=== PATIENT | female | born 1985 | race Caucasian/White ===

== ENCOUNTER 2021-03-17 14:30 | Outpatient (CLI) | payer BC, SELFPAY ==
--- NOTE | ~2021-03-17 | XR_ITS ---
XR abdomen/kub 1V DATE: 03/17/2021 14:52 INDICATION: Hematuria. Bilateral kidney stones. TECHNIQUE: AP projection, 2 views COMPARISON: 10/09/2019 KUB FINDINGS: There are calcific is overlying both renal silhouettes including one larger calcification o n the right measures 6.5 mm. The other calcifications are much smaller. No apparent calcification overlying the ureters. The psoas shadows are intact. No visceromegaly. No evidence of bowel obstruction. IMPRESSION: Probable bilateral nephrolithiasis. Noncontrast CT abdomen pelvis examination would be more sensitive and accurate for detection of numbe r and location of urinary tract stones. Reviewed, dictated and finalized at [facility]. Reviewed, dictated and finalized at [facility]. IMPRESSION: Probable bilateral nephrolithiasis. Noncontrast CT abdomen pelvis examination would be more sensitive and accurate for detection of number and location of urinary tract stones.
== END 2021-03-17 14:31 | disposition home or self-care (01) ==
LOC: ANHIMG 14:36
PROVIDERS: PCP Family Medicine; Visit Provider Nurse Practitioner Adult Health
DX: N20.0 Calculus of kidney (principal)
CPT/HCPCS: 74018

== ENCOUNTER 2021-05-23 16:48 | Outpatient (CLI) | payer BC, SELFPAY ==
[2021-05-23 17:23] LABS: INR 1.1; Prothrombin Time 13.7 Seconds (11.1-14.7)
[2021-05-23 17:24] LABS: Partial Thromboplastin Time 27.7 SECONDS (22.3-36.8)
[2021-05-23 17:44] LABS: Beta HCG Quantitative < 2.39 mIU/ML
== END 2021-05-23 16:49 | disposition home or self-care (01) ==
PROVIDERS: PCP Family Medicine; Visit Provider Urology
DX: Z01.818 Encounter for other preprocedural examination (principal); N20.0 Calculus of kidney
CPT/HCPCS: 36415; 84702; 85610; 85730; 87086

== ENCOUNTER 2021-05-26 00:12 | Day surgery (SDC) | payer BC, SELFPAY ==
--- NOTE | 2021-05-21 10:31 | PM.HPGS ---
History of Present Illness History of Present Illness Consent: Risks, benefits, and alternatives have been discussed and questions answered. Patient agrees to proceed with procedure. Chief complaint: right renal stone Narrative: Ioana Read is a 36 year old female Without history of urolithiasis who was recently undergoing evaluation for micro hematuria. CT scan abdomen pelvis with without contrast reveals bilateral nonobstructing renal calculi, largest on the right. KUB reveals a calcified 5-6 mm right renal calculus. After discussion of options we will plan right ESWL with cystoscopy to complete evaluation for hematuria. Review of Systems Cardiovascular: Cardiovascular: Denies chest pain, Denies lightheadedness, Denies palpitations and Denies dyspnea Respiratory: Respiratory: Denies dyspnea Gastrointestinal: Gastrointestinal: Denies diarrhea, Denies nausea and Denies vomiting Genitourinary: Genitourinary: Denies hematuria and Denies dysuria Endocrine: Endocrine: Denies palpitations PMFSH Past Medical History Medical History Anxiety Meds Home Medications and Allergies Home Medications Medication Instructions Recorded Confirmed Type Adults Multivitamin 1 PO DAILY 09/09/19 History drospirenone-ethinyl estradiol 1 tablet PO 09/09/19 History [Gianvi (28)] phentermine 37.5 mg PO DAILY 09/09/19 09/25/19 History thiamine HCl (vitamin B1) 100 mg IM [id number] 09/09/19 09/25/19 History hydrocodone-acetaminophen 1 - 2 tablet PO Q6H PRN #20 tablet 09/25/19 Rx sulfamethoxazole-trimethoprim 1 tablet PO Q12H #6 tablet 09/25/19 Rx Allergies Allergy/AdvReac Type Severity Reaction Status Date / Time Penicillins Allergy Intermediate Hives Verified 09/25/19 07:37 Exam Const: General: no acute distress Resp: Effort & Inspection: normal respiratory effort GI: Inspection: non-distended GI Palp: No abdominal tenderness and No Guarding due to palpation present (GI) Auscultation: normal bowel sounds Assessment and Plan Assessment and plan (1) Bilateral renal stones: Code(s): N20.0 - Calculus of kidney Status: Acute (2) Microscopic hematuria: Code(s): R31.29 - Other microscopic hematuria Status: Acute
[2021-05-22 15:56] VITALS: BMI 23.5
--- NOTE | 2021-05-25 12:10 | P.PNAN_ITS ---
Anes - Initial Pre Proc Eval Procedure: Operation Date: 05/26/21 07:30 Proposed Procedures p Right Extracorporeal Shock Wave Lithotripsy, - Damian Han MD s Cystoscopy - Damian Han MD Date/Time: 05/25/21 12:10 Surgeon: Damian Han MD Pre Op Diagnosis: right renal stone Patient Data Age: 36 Gender: F Height: 1.68 m Weight: 66 kg Allergies Allergy/AdvReac Type Severity Reaction Status Date / Time Penicillins Allergy Intermediate Hives Verified 05/22/21 15:33 Home Medications Medication Instructions Recorded Confirmed Type Adults Multivitamin 1 cap PO DAILY 09/09/19 05/22/21 History spironolactone 100 mg PO QAM 05/22/21 05/22/21 History Patient hx anesthesia problems: none Family hx anesthesia problems: none [facility] Past Medical History Medical History (Updated 05/25/21 @ 12:10 by Carson Joay DO) Anxiety Renal stones Surgical History Surgical History (Updated 05/25/21 @ 12:10 by Carson Joya DO) History of lithotripsy Social History Social History Smoking status: Never smoker Living arrangements: with family Spiritual care concerns: No Anes - Eval Final PreProcedure Day of Procedure 05/25/21 12:10 Patient weight: normal Heart: regular rate and rhythm Lungs: clear to auscultation and normal air movement Airway: Mallampati scale class 1 Neurological: alert and oriented Last oral intake: >/= 8 hours ASA classification: II Emergent: no Anesthetic plan: proceed Anesthesia type and monitoring: general LMA and standard monitoring Informed Consent: The patient's anesthetic plan and its attendant risks and benefits were discussed with the patient/family/POA. Questions were solicited and answers provided to the satisfaction of the patient/family/POA.
[2021-05-26] VITALS (8 sets, daily range): BP systolic 100–112; BP diastolic 63–76; PULSE 64–87; RESP 8–18; TEMP 36.1–36.8; O2SAT 100
--- NOTE | ~2021-05-26 | XR_ITS ---
EXAMINATION: XR abdomen/kub 1V EXAM DATE: 05/26/2021 06:31 INDICATION: Right-sided kidney stone. TECHNIQUE: Frontal projection of the upper abdomen, frontal projection lower abdomen/pelvis for inter pretation. Comparison is made to prior examination from 03/17/2021. FINDINGS: Reidentification of right nephrolithiasis, largest calcification measuring about 8 mm. Sto ol overlies the lower pole of the right kidney. Nonobstructive bowel gas pattern. No osseous abnormal ities seen in this skeletally immature patient. IMPRESSION: Right nephrolithiasis unchanged. Reviewed, dictated and finalized at [facility].
--- NOTE | 2021-05-26 06:31 | WPDHPUPDATE1 ---
History and Physical Update Update Date/Time: 05/26/21 06:31 History and Physical has been reviewed, including an updated exam of the patient. There are NO changes in the patient's condition. Risks, benefits, and alternatives have been discussed and questions answered. Patient agrees to proceed with procedure.
[2021-05-26] MEDS: LACTATED RINGERS 1,000 ML 30 ML IV CONT (06:55)
[2021-05-26] MEDS: ceFAZolin 2 GM/D5W 50 ML 2 GM/50 ML BAG IVPB (07:21)
[2021-05-26] MEDS: LIDOCAINE HCL 2% GEL UROJET 10 ML PKG MUCOUS MEM (07:35)
--- NOTE | 2021-05-26 07:55 | P.OP_ITS ---
Procedure Note - Detailed Date of Procedure 05/26/21 Pre-op Diagnosis Right renal stone, microhematuria Post-op Diagnosis same Procedure Performed Flexible cystoscopy, right ESWL Surgeon Damian Han MD Anesthesia general Description of Procedure The patient was brought to the operative suite where she was placed in the frog- legged position on the Dornier lithotripter table. Flexible cystoscopy was undertaken with a 16F flexible cystoscopy. Her urethra and bladder neck were endoscopically normal. The bladder mucosa was normal and there was a single, orthotopic ureteral orifice bilaterally. The patient was then repositioned in the supine position and the focal point of the lithotriptor was placed at a 5mm right renal calculus. A total of 2000 shocks were delivered at a power setting of 4. There appeared to be excellent fragmentation of the stone. The patient tolerated the procedure well and was taken to the recovery room in good condition. Estimated Blood Loss 0 Drains No Packing No Pathology none sent Complications No immediate complications Condition stable Disposition PACU
== END 2021-05-26 09:38 | disposition home or self-care (01) ==
PROVIDERS: PCP Family Medicine; Visit Provider Urology
PROC: (CPT 50590; principal; 2021-05-26 07:30)
PROC: 0TJB8ZZ Inspection of Bladder, Via Natural or Artificial Opening Endoscopic (ICD-10-PCS; CPT 52000; 2021-05-26 07:30)
DX: N20.0 Calculus of kidney (principal); R31.29 Other microscopic hematuria; F41.9 Anxiety disorder, unspecified
CPT/HCPCS: 50590; 74018; A9270; J0690; J1100; J2250; J2405; J2704; J3010; J7120

== ENCOUNTER 2021-06-07 15:10 | Outpatient (CLI) | payer BC, SELFPAY ==
--- NOTE | ~2021-06-07 | XR_ITS ---
XR abdomen/kub 1V 06/07/2021 15:40 Indication: Right renal stones Procedure: KUB Comparison: 05/26/2021 Findings: There is a punctate right renal stone. Bowel gas pattern is nonobstructive. No acute osseou s abnormality. Impression: 1: Punctate right nephrolithiasis. Right kidney partially obscured by bowel content. Reviewed, dictated and finalized at [facility]. Impression: 1: Punctate right nephrolithiasis. Right kidney partially obscured by bowel con tent.
== END 2021-06-07 15:11 | disposition home or self-care (01) ==
LOC: ANHIMG 15:16
PROVIDERS: PCP Family Medicine; Visit Provider Nurse Practitioner Adult Health
DX: N20.0 Calculus of kidney (principal); Z87.442 Personal history of urinary calculi
CPT/HCPCS: 74018

== ENCOUNTER 2021-06-13 09:27 | Outpatient (CLI) | payer BC, SELFPAY ==
[2021-06-13 10:21] LABS: Anion Gap 7 mmol/L (8-16); Blood Urea Nitrogen 18 mg/dL (7-17); Calcium 9.6 mg/dL (8.4-10.2); Carbon Dioxide 29 mmol/L (22-30); Chloride 104 mmol/L (98-107); Estimated Glomerular Filt Rate > 60; Glucose 96 mg/dL (65-110); Potassium 4.3 mmol/L (3.4-5.0); Sodium 140 mmol/L (137-145)
[2021-06-13 11:03] LABS: Parathyroid Intact 46.1 pg/mL (7.5-53.5)
== END 2021-06-13 09:28 | disposition home or self-care (01) ==
LOC: ANHLAB 09:29
PROVIDERS: PCP Family Medicine; Visit Provider Urology
DX: N20.0 Calculus of kidney (principal)
CPT/HCPCS: 36415; 80048; 83970

== ENCOUNTER 2021-12-06 16:22 | Outpatient (CLI) | payer BC, SELFPAY ==
--- NOTE | ~2021-12-06 | XR_ITS ---
EXAMINATION: XR abdomen/kub 1V DATE: 12/06/2021 16:41 INDICATION: Bilateral renal stones TECHNIQUE: A supine view of the abdomen on 2 radiographs was obtained. COMPARISON: 06/07/2021 FINDINGS: Unchanged 1-2 mm mm stone projecting over the lower pole of the right kidney. No other stones identif ied. Normal bowel gas pattern. Lung bases are clear. Heart size is normal. Lucency suggesting a tampo n at the vaginal vault. Bones are unremarkable. IMPRESSION: 1. Unchanged 1-2 mm stone at the lower pole of the right kidney. Reviewed, dictated and finalized at [facility]. T DESK CLERK
== END 2021-12-06 16:23 | disposition home or self-care (01) ==
LOC: ANHIMG 16:26
PROVIDERS: PCP Family Medicine; Visit Provider Urology
DX: N20.0 Calculus of kidney (principal)
CPT/HCPCS: 74018

== ENCOUNTER 2022-12-10 15:20 | Outpatient (CLI) | payer BC, SELFPAY ==
--- NOTE | ~2022-12-10 | XR_ITS ---
Supine views of the abdomen Clinical history: Renal stones COMPARISON: 12/06/2021 Findings: Bowel gas pattern is nonspecific. No evidence for obstruction or free air. Suspected very s mall right renal stone noted. Osseous structures are intact. Impression: Suspected very small right renal stone noted. Reviewed, dictated and finalized at [facility]. Impression: Suspected very small right renal stone noted.
== END 2022-12-10 15:21 | disposition home or self-care (01) ==
PROVIDERS: PCP Family Medicine; Visit Provider Urology
DX: N20.0 Calculus of kidney (principal)
CPT/HCPCS: 74018